=== PATIENT | female | born 1990 | race Caucasian/White ===

== ENCOUNTER 2024-07-31 10:45 | Outpatient (CLI) | payer BC, SELFPAY | END 2024-07-31 10:46 | disposition home or self-care (01) | LOC: NFLDREF 08-03 07:54 | PROVIDERS: Visit Provider Physician Assistant | DX: E03.9 Hypothyroidism, unspecified (principal); Z13.1 Encounter for screening for diabetes mellitus; Z13.6 Encounter for screening for cardiovascular disorders | CPT/HCPCS: 80061; 82947; 84443 ==

== ENCOUNTER 2025-06-27 07:39 | Outpatient (CLI) | payer BC, SELFPAY | END 2025-06-27 07:40 | disposition home or self-care (01) | LOC: NFLDREF 06-29 11:58 | PROVIDERS: PCP Family Medicine; Referring Provider Family Medicine; Visit Provider Family Medicine | DX: E78.5 Hyperlipidemia, unspecified (principal); E03.9 Hypothyroidism, unspecified | CPT/HCPCS: 80053; 80061; 84439; 84443 ==

== ENCOUNTER 2025-08-22 15:39 | Outpatient (CLI) | payer BC, SELFPAY | END 2025-08-22 15:40 | disposition home or self-care (01) | LOC: NFLDREF 08-29 00:42 | PROVIDERS: PCP Family Medicine; Referring Provider Family Medicine; Visit Provider Family Medicine | DX: R10.9 Unspecified abdominal pain (principal); E03.9 Hypothyroidism, unspecified | CPT/HCPCS: 80053; 84443; 86140; 86364 ==